=== PATIENT | female | born 1990 | race Caucasian/White ===

== ENCOUNTER 2023-01-22 09:30 | Emergency (ER) | payer MEDICAID, SELFPAY ==
[2023-01-22] VITALS (11 sets, daily range): BP systolic 93–108; BP diastolic 41–74; PULSE 84–98; RESP 16–22; TEMP 36.8; O2SAT 95–100; BMI 38.2
--- NOTE | 2023-01-22 09:39 | ED_ITS ---
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 Patient states that she was at home in her apartment and she smelled cleaning supplies, she has had an allergy to Clorox in the past, she developed itchiness and redness in the face, no difficulty with breathing or swallowing,. Patient states that she has had reactions in the past requiring intubation, she did take 1 IM dose epinephrine 0.3 around 30 minutes ago. Patient had been doing well prior to arrival to the emergency department Related Data Home Medications Medication Instructions Recorded Confirmed diphenhydramine HCl 25 mg capsule 25 mg PO TID 01/22/23 01/22/23 (Benadryl) epinephrine .ROUTE 01/22/23 Previous Rx's Medication Instructions Recorded epinephrine 0.3 mg/0.3 mL 0.3 ml IM Q5-15M PRN #2 ea 01/22/23 injection, auto-injector prednisone 20 mg tablet 40 mg PO DAILY 5 days #10 tabs 01/22/23 Allergies Allergy/AdvReac Type Severity Reaction Status Date / Time acetaminophen [From Vicodin] Allergy Verified 01/22/23 09:41 hydrocodone [From Vicodin] Allergy Verified 01/22/23 09:41 tramadol [From Ultram] Allergy Verified 01/22/23 09:41 Review of Systems Status of ROS: Reports: 10 or more systems reviewed and unremarkable except as noted in History and below [facility] Social History Smoking Status: Smoker, status unknown Exam Narrative: Exam Narrative: General: No obvious distress sitting comfortably, nontoxic in appearance HEENT: Oropharynx is clear and moist, pupils equal round reactive to light, extraocular muscles intact Neck: Full range of motion, no JVD Lungs: Clear to auscultation bilaterally, no wheezing or stridor Heart: Mild sinus tachycardia Abdomen: Soft nontender, bowel sounds present Muscle skeletal: +5 strength upper lower extremities Neuro: Alert awake and oriented x3 Skin: Scattered blanching erythema to the forehead cheeks, chin and upper chest area. Const: Vital Signs, click to edit/add: Vital Signs - 24 hr 01/22/23 09:43 01/22/23 09:57 01/22/23 10:32 Temperature 98.2 F Pulse Rate 84 Pulse Rate [Right Pulse Oximeter] 98 Respiratory Rate 22 16 Blood Pressure 93/61 Blood Pressure [Ri ght Upper Arm] 106/74 Pulse Oximetry 100 95 98 Oxygen Delivery Me thod Room Air 01/22/23 11:01 01/22/23 11:32 01/22/23 12:01 Temperature Pulse Rate 93 92 91 Pulse Rate [Right Pulse Oximeter] Respiratory Rate 18 Blood Pressure 107/69 106/65 104/59 L Blood Pressure [Ri ght Upper Arm] Pulse Oximetry 96 97 96 Oxygen Delivery Me thod 01/22/23 12:15 01/22/23 13:02 01/22/23 13:43 Temperature Pulse Rate 88 95 89 Pulse Rate [Right Pulse Oximeter] Respiratory Rate Blood Pressure 95/55 L 107/41 L Blood Pressure [Ri ght Upper Arm] Pulse Oximetry 95 97 97 Oxygen Delivery Me thod 01/22/23 14:02 Temperature Pulse Rate 93 Pulse Rate [Right Pulse Oximeter] Respiratory Rate Blood Pressure 104/54 L Blood Pressure [Ri ght Upper Arm] Pulse Oximetry 96 Oxygen Delivery Me thod Course Course Hospital Course: 9:30 AM: AIDET performed, vitals are stable at this time, shows mild tachycardia from previous epinephrine injection, IV placed, 0.9 normal saline bolus, will give 50 mg IV Benadryl, 125 mg IV Solu-Medrol. 9:45 AM: Patient feels some tingling around her lips, scratchy throat, feels like it is closing, will give IM dose epinephrine 0.3 mg. Patient is speaking in full sentences, breathing is stable Reevaluation(s) Reevaluation #1: Patient is feeling better after above care given, vitals have been stable, she denies any tingling, trouble with breathing, the redness has improved, will continue to monitor since patient received epinephrine IM. Patient has no concerns at this time. IV fluids running, blood pressure stable. Time: 12:17 Reevaluation #2: Patient was watched greater than 4 hours after her IM injection of epinephrine, her symptoms improved dramatically, she no longer has any skin erythema or flushing, the tingling has resolved, she denies any breathing difficulties, discussion about discharging, patient was in agreement, prescription for prednisone and refill of her EpiPen sent to [facility] in [place], she should follow up with her primary care provider over the next 5-7 days for ED follow-up and recheck, return precautions given. Time: 14:41 Vital Signs Vital signs: Initial Vital Signs Temperature 98.2 F 01/22/23 09:43 Temperature Source Temporal Artery Scan 01/22/23 09:43 Pulse Rate 98 01/22/23 09:43 Respiratory Rate 22 01/22/23 09:43 Blood Pressure 106/74 01/22/23 09:43 Blood Pressure Mean 84 01/22/23 09:43 Blood Pressure Position Sitting 01/22/23 09:43 Pulse Oximetry 100 01/22/23 09:43 Oxygen Delivery Method Room Air 01/22/23 09:43 Vital Signs Temperature 98.2 F 01/22/23 09:43 Pulse Rate 98 01/22/23 09:43 Respiratory Rate 22 01/22/23 09:43 Blood Pressure 106/74 01/22/23 09:43 Pulse Oximetry 100 01/22/23 09:43 Oxygen Delivery Method Room Air 01/22/23 09:43 Temperature 98.2 F 01/22/23 09:43 Pulse Rate 93 01/22/23 14:02 Respiratory Rate 18 01/22/23 11:01 Blood Pressure 104/54 L 01/22/23 14:02 Pulse Oximetry 96 01/22/23 14:02 Oxygen Delivery Method Room Air 01/22/23 09:43 Discharge Plan Discharge Clinical Impression: Allergic reaction Patient Disposition: Home, Self-Care Condition: Improved Instructions: General Allergic Reaction (ED) Additional Instructions: To take 40 mg oral prednisone with 50 mg of oral Benadryl as needed every 4-6 hours, to follow-up with primary care provider over the next 7-10 days, return precautions given. Activity Level: No Restrictions Prescriptions: New prednisone 20 mg tablet 40 mg PO DAILY 5 Days Qty: 10 0RF epinephrine 0.3 mg/0.3 mL auto-injector 0.3 ml IM Q5-15M PRNQty: 2 0RF Rx Instructions: do not exceed 3 doses per episode No Action epinephrine [EpiPen 2-Zaki] .ROUTE diphenhydramine HCl [Benadryl] 25 mg capsule 25 mg PO TID Follow Up/Referrals: Provider,Not a Local [Primary Care Provider] - Stand Alone Forms: [facility] Info Instructions
[2023-01-22] MEDS: EPINEPHrine 0.3 MG PEN IM (09:48)
[2023-01-22] MEDS: METHYLPREDNISOLONE SOD SUCC 62.5 MG/ML (125) 125 MG IVP (09:53)
[2023-01-22] MEDS: diphenhydrAMINE 50 MG/ML inj IVP (09:53)
[2023-01-22] MEDS: 0.9 % SODIUM CHLORIDE 1000 ml 1,000 ML IV (09:54)
--- NOTE | 2023-01-22 11:02 | ED.NURSE ---
Pt reports improvement in lips itching, throat clearing/swelling. [place] provided, call light within reach. All needs met at this time.
--- NOTE | 2023-01-22 12:26 | ED.NURSE ---
Pt c/o throat pain from coughing. informed. Ice water provided. No further orders received.
== END 2023-01-22 14:55 | disposition home or self-care (01) ==
PROVIDERS: Emergency Provider Student in an Organized Health Care Education/Training Program
DX: L23.5 Allergic contact dermatitis due to other chemical products (principal)
CPT/HCPCS: 94761; 96372; 96374; 96375; 99283; 99291; J0171; J1200; J2930; J7030